=== PATIENT | female | born 1975 | race Two or more races ===

== ENCOUNTER 2019-04-28 21:07 | Emergency (ER) | payer OTHER ==
[~2019-04-28] VITALS: Ht 157.5 cm; Wt 56.7 kg
[2019-04-28 21:12] VITALS: Ht 157.5 cm; Wt 56.7 kg
[2019-04-28 22:51] LABS: CALCIUM 8.3 mg/dL (8.5-10.1); CARBON DIOXIDE 24.6 mmol/L (21-32); CHLORIDE SERUM 99 mmol/L (98-107); CREATININE SERUM 0.8 mg/dL (0.6-1.0); GFR1 > 60 mL/min; GLUCOSE SERUM 130 mg/dL (74-106); POTASSIUM SERUM 3.5 mmol/L (3.5-5.1); SODIUM SERUM 134 mmol/L (136-145)
[2019-04-28 22:55] LABS: ALKALINE PHOSPHATASE 158 U/L (46-116); ALT/SGPT 62 U/L (14-59); AST/SGOT 44 U/L (15-37); TOTAL PROTEIN, SERUM 7.9 g/dL (6.4-8.2)
[2019-04-28 22:56] LABS: ALBUMIN 3.3 g/dL (3.4-5.0)
[2019-04-28 23:15] LABS: BASOPHIL % 0.1 % (0-2); PLATELET COUNT 259 x10^3mcL (130-400); RED CELL DISTRIBUTION WIDTH 13.5 % (11.5-14.5)
[2019-04-29 00:57] VITALS: BP 94/52
== END 2019-04-29 00:57 | disposition home or self-care (01) ==
LOC: ED 21:07
PROVIDERS: Emergency Medicine
DX: N13.2 Hydronephrosis with renal and ureteral calculous obstruction (principal); N39.0 Urinary tract infection, site not specified
CPT/HCPCS: J0696; J1885; Q0092